=== PATIENT | female | born 1970 | race African-American/Black ===

== ENCOUNTER 2017-07-07 04:20 | Emergency (ER) | payer BC ==
--- NOTE | 2017-07-07 04:50 | ER Document Report ---
ED Allergic Reaction - General Chief Complaint: Allergic Reaction Stated Complaint: POSSIBLE ALLERGIC REACTION Time Seen by Provider: 07/07/17 04:42 Notes: Patient is a 47-year-old female who comes emergency department for chief complaint of swelling to her upper lip. She states that about 8 PM her niece bumped her head on her lips and patient started noticing swelling on the left side almost immediately. Swelling has progressed since that time. Patient denies swelling of her tongue, difficulty swallowing, shortness of breath. She states that she felt like her heart was racing, states she thinks she was just anxious, she denies feeling any chest pain or dizziness. Her only past medical history is hypertension, she does take lisinopril. She has never had similar symptoms like this in the past. TRAVEL OUTSIDE OF THE [place] IN LAST 30 DAYS: No - Related Data Allergies/Adverse Reactions: No Known Allergies Allergy (Unverified 07/07/17 04:31) Past Medical History - General Information source: Patient - Social History Smoking Status: Never Smoker Frequency of alcohol use: None Drug Abuse: None Lives with: Family Family History: Reviewed & Not Pertinent Patient has suicidal ideation: No Patient has homicidal ideation: No - Past Medical History Cardiac Medical History: Reports: Hx Hypertension Renal/ Medical History: Denies: Hx Peritoneal Dialysis Surgical Hx: Negative - Immunizations Immunizations up to date: Yes Hx Diphtheria, Pertussis, Tetanus Vaccination: Yes Review of Systems - Review of Systems Constitutional: No symptoms reported EENT: See HPI Cardiovascular: No symptoms reported Respiratory: No symptoms reported Gastrointestinal: No symptoms reported Genitourinary: No symptoms reported Female Genitourinary: No symptoms reported Musculoskeletal: No symptoms reported Skin: No symptoms reported Hematologic/Lymphatic: No symptoms reported Neurological/Psychological: No symptoms reported Physical Exam - Vital signs Vitals: Temp Pulse Resp BP Pulse Ox 97.6 F 73 18 163/106 H 96 07/07/17 04:25 07/07/17 04:25 07/07/17 04:25 07/07/17 04:25 07/07/17 04:25 Interpretation: Normal - General General appearance: Appears well, Alert In distress: None - HEENT Head: Normocephalic, Atraumatic Eyes: Normal Conjunctiva: Normal Extraocular movements intact: Yes Eyelashes: Normal Pupils: PERRL Ears: Normal Sinus: Normal Nasal: Normal Mouth/Lips: Angioedema - Obvious angioedema with swelling of the entire upper lip, bottom lip is normal, tongue is normal, oral and pharyngeal exam is normal otherwise Pharynx: Normal Neck: Normal - Respiratory Respiratory status: No respiratory distress. No: Respiratory distress, Labored , Retractions, Tachypnea Chest status: Nontender Breath sounds: Normal. No: Decreased air movement, Stridor Chest palpation: Normal - Cardiovascular Rhythm: Regular. No: Tachycardia Heart sounds: Normal auscultation, S1 appreciated, S2 appreciated Murmur: No - Abdominal Inspection: Normal Distension: No distension Bowel sounds: Normal Tenderness: Nontender Organomegaly: No organomegaly - Back Back: Normal, Nontender - Extremities General upper extremity: Normal inspection, Nontender, Normal color, Normal ROM , Normal temperature General lower extremity: Normal inspection, Nontender, Normal color, Normal ROM , Normal temperature, Normal weight bearing. No: Wellington's sign - Neurological Neuro grossly intact: Yes Cognition: Normal Orientation: AAOx4 Candace Coma Scale Eye Opening: Spontaneous Candace Coma Scale Verbal: Oriented Candace Coma Scale Motor: Obeys Commands Candace Coma Scale Total: 15 Speech: Normal Motor strength normal: LUE, RUE, LLE, RLE Sensory: Normal - Psychological Associated symptoms: Normal affect, Normal mood - Skin Skin Temperature: Warm Skin Moisture: Dry Skin Color: Normal Course - Re-evaluation Re-evalutation: Examination is consistent with the trauma to the lips causing secondary angioedema. There is no tongue swelling, swelling of the posterior pharynx, wheezing, tachypnea, or hypoxia. Patient is calm and well-appearing with very swollen upper lip. Patient initially complaining of some palpitations without chest pain, dizziness , or shortness of breath. She states these resolved after she came to the emergency department. She states she thinks these were from anxiety. EKG, CBC , chemistry, magnesium are all unremarkable. On reexamination angioedema does not appear to be progressing. Discussed with Dr. Guzman, he does not recommend FFP to treat this at this time. I did discuss with the patient. Patient was monitored for 2 hours per recommendations from Dr. Guzman. Appeared to minimally improved, definitely did not worsen. At this point patient is asking to go home. I discussed strict return precautions in detail with the patient. Patient will not take lisinopril, will continue her hydrochlorothiazide, metoprolol, and amlodipine. She states she will monitor her blood pressures and follow-up with her primary care and she will return if she worsens in any way. - Vital Signs Vital signs: Temp Pulse Resp BP Pulse Ox 97.6 F 73 16 128/80 H 100 07/07/17 04:25 07/07/17 04:25 07/07/17 06:01 07/07/17 06:01 07/07/17 06:01 - Laboratory Result Diagrams: 07/07/17 04:50 07/07/17 04:50 Laboratory results interpreted by me: 07/07/17 04:50 RDW 15.5 H Discharge - Discharge Clinical Impression: Swollen upper lip Angioedema Qualifiers: Encounter type: initial encounter Qualified Code(s): T78.3XXA - Angioneurotic edema, initial encounter Condition: Stable Disposition: HOME, SELF-CARE Additional Instructions: Your workup shows no concerning abnormalities. Your examination and symptoms are consistent with angioedema, this should slowly resolve with time. Do not take your lisinopril ever again. Follow-up closely with your primary care for additional management and monitoring of your blood pressure. Return immediately to the emergency department if you develop any new concerning symptoms such as swelling of the tongue, difficulty swallowing, shortness of breath, wheezing, or any other concerning symptoms.
[2017-07-07 05:00] LABS: ABSOLUTE BASOPHILS # (AUTO) 0.1 10^3/uL (0.0-0.2); ABSOLUTE EOSINOPHILS # (AUTO) 0.1 10^3/uL (0.0-0.6); ABSOLUTE LYMPHOCYTES (AUTO) 2.1 10^3/uL (0.5-4.7); ABSOLUTE MONOCYTES (AUTO) 0.7 10^3/uL (0.1-1.4); ABSOLUTE NEUT (AUTO) 3.3 10^3/uL (1.7-8.2); BASOPHILS % (AUTO) 1.1 % (0-2); EOSINOPHILS % (AUTO) 1.8 % (0-6); HEMATOCRIT 42.5 % (36.0-47.0); HEMOGLOBIN 14.6 g/dL (12.0-15.5); HGB HCT DIFFERENCE 1.3; LYMPHOCYTES % (AUTO) 33.1 % (13-45); MEAN CORPUSCULAR HEMOGLOBIN 30.3 pg (27.0-33.4); MEAN CORPUSCULAR HGB CONC 34.4 g/dL (32.0-36.0); MEAN CORPUSCULAR VOLUME 88 fl (80-97); MONOCYTES % (AUTO) 11.5 % (3-13); RED BLOOD COUNT 4.84 10^6/uL (3.72-5.28); RED CELL DISTRIBUTION WIDTH 15.5 % (11.5-14.0); SEGMENTED NEUTROPHILS % (AUTO) 52.5 % (42-78); WHITE BLOOD COUNT 6.3 10^3/uL (4.0-10.5)
[2017-07-07 05:07] LABS: PROTHROMBIN TIME 11.8 SEC (11.4-15.4)
[2017-07-07 05:08] LABS: PARTIAL THROMBOPLASTIN TIME 34.4 SEC (23.5-35.8)
[2017-07-07 05:10] LABS: ALANINE AMINOTRANSFERASE 24 U/L (9-52); ALBUMIN 4.4 g/dL (3.5-5.0); ALKALINE PHOSPHATASE 115 U/L (38-126); ANION GAP 12 (5-19); ASPARTATE AMINO TRANSFERASE 23 U/L (14-36); BILIRUBIN,DIRECT 0.4 mg/dL (0.0-0.4); BILIRUBIN,TOTAL 0.6 mg/dL (0.2-1.3); BLOOD UREA NITROGEN 14 mg/dL (7-20); CALCIUM 9.7 mg/dL (8.4-10.2); CARBON DIOXIDE 29 mmol/L (22-30); CHLORIDE 100 mmol/L (98-107); CREATININE RESULT 0.84 mg/dL (0.52-1.25); GLUCOSE 102 mg/dL (75-110); SODIUM 140.9 mmol/L (137-145)
[2017-07-07 07:06] VITALS: BP 132/98
--- NOTE | 2017-07-07 12:45 | EKG REPORT ---
SEVERITY:- BORDERLINE ECG - SINUS RHYTHM PROBABLE LEFT ATRIAL ABNORMALITY NONSPECIFIC ST-T CHANGES ANTEROSEPTAL LEADS. : Confirmed by: Silvano Hanna MD 07-Jul-2017 12:45:06
== END 2017-07-07 07:06 | disposition home or self-care (01) ==
LOC: ER 04:20
DX: R22.9 Localized swelling, mass and lump, unspecified (principal); T78.3XXA Angioneurotic edema, initial encounter; I10 Essential (primary) hypertension; X58.XXXA Exposure to other specified factors, initial encounter
CPT/HCPCS: 36415; 80053; 83735; 85025; 85610; 85730; 93005; 93010; 99284